=== PATIENT | female | born 1990 | race Asian ===

== ENCOUNTER 2019-09-25 13:35 | Emergency (ER) | payer BC ==
[~2019-09-25] VITALS: Ht 165.1 cm; Wt 70.3 kg
[2019-09-25 13:41] VITALS: Ht 165.1 cm; Wt 70.3 kg
[2019-09-25 14:53] LABS: BASOPHIL % 0.2 % (0-2); CARBON DIOXIDE 24.2 mmol/L (21-32); CHLORIDE SERUM 106 mmol/L (98-107); CREATININE SERUM 0.8 mg/dL (0.6-1.0); GFR1 > 60 mL/min; GLUCOSE SERUM 127 mg/dL (74-106); PLATELET COUNT 258 x10^3mcL (130-400); POTASSIUM SERUM 3.5 mmol/L (3.5-5.1); RED CELL DISTRIBUTION WIDTH 12.3 % (11.5-14.5); SODIUM SERUM 144 mmol/L (136-145)
[2019-09-25 14:58] LABS: ALBUMIN 3.6 g/dL (3.4-5.0); ALKALINE PHOSPHATASE 76 U/L (46-116); ALT/SGPT 22 U/L (14-59); AST/SGOT 17 U/L (15-37); BILIRUBIN TOTAL 0.4 mg/dL (0.20-1.00); LIPASE 106 IU/L (73-393); TOTAL PROTEIN, SERUM 7.9 g/dL (6.4-8.2)
[2019-09-25 15:40] VITALS: BP 107/56
== END 2019-09-25 15:40 | disposition home or self-care (01) ==
LOC: ED 13:35
PROVIDERS: Emergency Medicine
DX: K29.70 Gastritis, unspecified, without bleeding (principal)
CPT/HCPCS: C9113; J2270; J2405; J7030; Q0092